=== PATIENT | male | born 1945 | race Caucasian/White ===

== ENCOUNTER → 2017-12-31 18:12 | Outpatient (REF) | payer MEDICARE, OTHER, SELFPAY | LOC: LAB 18:12 | PROVIDERS: Family Provider Family Medicine; PCP Family Medicine; Visit Provider Physician Assistant | DX: L98.8 Other specified disorders of the skin and subcutaneous tissue (principal); L53.8 Other specified erythematous conditions; S51.802A Unspecified open wound of left forearm, initial encounter | CPT/HCPCS: 87070; 87075; 87077; 87147; 87186; 87205 ==

== ENCOUNTER → 2018-01-11 14:19 | Outpatient (CLI) | payer MEDICARE, OTHER, SELFPAY ==
[2018-01-11 15:54] LABS: Hematocrit 39.6 % (41-53); Hemoglobin 13.9 g/dL (13.5-17.5); Mean Corpuscular HGB Conc 35.2 % (30-36); Mean Corpuscular Hemoglobin 31.8 PG (26-34); Mean Corpuscular Volume 90.5 fL (80-100); Red Blood Cell Count 4.37 X10^6/uL (4.5-5.9); White Blood Cell Count 6.1 X10^3/uL (4.5-11.0)
[2018-01-11 15:55] LABS: Platelet Count 37 X10^3/uL (150-400); Red Cell Distribution Width 13.7 % (11.6-14.8)
[2018-01-11 16:24] LABS: Neutrophils Absolute Manual 671 /uL (3000-5900); Total Cells Counted 100
[2018-01-11 16:27] LABS: Platelet Estimate Decreased on smear
[2018-01-11 16:29] LABS: RBC Morphology Normal Morphology; WBC Morphology Comment NOTE:
[2018-01-11 16:37] LABS: Alanine Aminotransferase 60 IU/L (21-72); Albumin 4.2 g/dL (3.5-5.0); Albumin Globulin Ratio 1.6 (1.0-2.8); Alkaline Phosphatase 65 U/L (38-126); Aspartate Aminotransferase 36 IU/L (17-59); Bilirubin Total 0.6 mg/dL (0.2-1.3); Blood Urea Nitrogen 16 mg/dL (9-20); Calcium 8.9 mg/dL (8.4-10.2); Carbon Dioxide 30 mmol/L (22-32); Chloride 100 mmol/L (98-107); Estimated Glomerular Filt Rate > 60.0 mL/min (>60); Globulin 2.6 g/dL (1.7-4.1); Glucose 106 mg/dL (80-110); HEMOLYSIS < 15 (0-50); Potassium 3.8 mmol/L (3.4-5.1); Sodium 142 mmol/L (137-145); Total Protein 6.8 g/dL (6.3-8.2)
[2018-01-11 16:58] LABS: Thyroid Stimulating Hormone 1.97 uIU/mL (0.47-4.68)
== END ==
PROVIDERS: Visit Provider Internal Medicine
DX: R53.83 Other fatigue (principal); D69.6 Thrombocytopenia, unspecified
CPT/HCPCS: 36415; 80053; 84443; 85025

== ENCOUNTER → 2018-01-24 08:58 | Outpatient (CLI) | payer MEDICARE, OTHER, SELFPAY ==
[2018-01-24 09:29] LABS: Hematocrit 40.8 % (41-53); Hemoglobin 14.2 g/dL (13.5-17.5); Mean Corpuscular HGB Conc 34.8 % (30-36); Mean Corpuscular Hemoglobin 31.8 PG (26-34); Mean Corpuscular Volume 91.3 fL (80-100); Red Blood Cell Count 4.47 X10^6/uL (4.5-5.9); Red Cell Distribution Width 14.2 % (11.6-14.8); White Blood Cell Count 8.9 X10^3/uL (4.5-11.0)
[2018-01-24 11:00] LABS: Neutrophils Absolute Manual 2937 /uL (3000-5900); Total Cells Counted 100
[2018-01-24 11:03] LABS: Platelet Count 106 X10^3/uL (150-400)
== END ==
PROVIDERS: Family Provider Family Medicine; PCP Family Medicine; Visit Provider Internal Medicine Hematology & Oncology
DX: D69.6 Thrombocytopenia, unspecified (principal)
CPT/HCPCS: 36415; 82784; 85025

== ENCOUNTER → 2018-02-15 07:41 | Outpatient (CLI) | payer MEDICARE, OTHER, SELFPAY ==
[2018-02-15 08:38] LABS: Cholesterol 159 mg/dL (140-199); HDL Cholesterol 22 mg/dL (40-60); LDL Cholesterol Calculated 73 mg/dL (<100); Triglycerides 320 mg/dL (35-150)
[2018-02-15 08:47] LABS: Hematocrit 43.2 % (41-53); Hemoglobin 14.8 g/dL (13.5-17.5); Mean Corpuscular HGB Conc 34.3 % (30-36); Mean Corpuscular Hemoglobin 31.7 PG (26-34); Mean Corpuscular Volume 92.4 fL (80-100); Red Blood Cell Count 4.68 X10^6/uL (4.5-5.9); Red Cell Distribution Width 13.8 % (11.6-14.8); White Blood Cell Count 10.1 X10^3/uL (4.5-11.0)
[2018-02-15 08:58] LABS: Add Manual Diff / Slide Review NO; Basophils Percent Auto 0.5 % (0-2); Eosinophils Percent Auto 0.5 % (2-4); Lymphocytes Percent Auto 61.5 % (25-40); Monocytes Percent Auto 13.6 % (3-14); Neutrophils Absolute Auto 2414 /uL (3000-5900); Neutrophils Percent Auto 23.9 % (50-75); Platelet Count 84 X10^3/uL (150-400)
[2018-02-15 09:03] LABS: Alanine Aminotransferase 50 IU/L (21-72); Albumin 4.4 g/dL (3.5-5.0); Albumin Globulin Ratio 1.6 (1.0-2.8); Alkaline Phosphatase 58 U/L (38-126); Aspartate Aminotransferase 33 IU/L (17-59); Bilirubin Total 0.6 mg/dL (0.2-1.3); Blood Urea Nitrogen 15 mg/dL (9-20); Calcium 9.5 mg/dL (8.4-10.2); Carbon Dioxide 31 mmol/L (22-32); Chloride 102 mmol/L (98-107); Estimated Glomerular Filt Rate > 60.0 mL/min (>60); Globulin 2.8 g/dL (1.7-4.1); Glucose 103 mg/dL (80-110); HEMOLYSIS < 15 (0-50); Lactate Dehydrogenase 405 U/L (313-618); Potassium 4.1 mmol/L (3.4-5.1); Sodium 142 mmol/L (137-145); Total Protein 7.2 g/dL (6.3-8.2)
== END ==
PROVIDERS: Internal Medicine Hematology & Oncology; PCP Internal Medicine; Visit Provider Internal Medicine
DX: E78.1 Pure hyperglyceridemia (principal); R74.8 Abnormal levels of other serum enzymes; D69.3 Immune thrombocytopenic purpura
CPT/HCPCS: 36415; 80053; 80061; 83615; 85025

== ENCOUNTER → 2018-07-28 12:49 | Outpatient (CLI) | payer MEDICARE, OTHER, SELFPAY ==
[2018-07-28 13:06] LABS: Add Manual Diff / Slide Review NO; Basophils Absolute Auto 100 /uL (0-100); Basophils Percent Auto 0.6 % (0-2); Eosinophils Absolute Auto 100 /uL (0-450); Eosinophils Percent Auto 0.8 % (2-4); Hematocrit 41.9 % (41-53); Hemoglobin 14.3 g/dL (13.5-17.5); Lymphocytes Absolute Auto 5100 /uL (1100-4500); Lymphocytes Percent Auto 49.1 % (25-40); Mean Corpuscular Volume 91.1 fL (80-100); Monocytes Absolute Auto 1700 /uL (0-900); Monocytes Percent Auto 16.9 % (3-14); Neutrophils Absolute Auto 3400 /uL (1500-7000); Neutrophils Percent Auto 32.6 % (50-75); Platelet Count 106 X10^3/uL (150-400); Red Cell Distribution Width 13.9 % (11.6-14.8); White Blood Cell Count 10.3 X10^3/uL (4.5-11.0)
--- NOTE | 2018-07-28 16:01 | PC.NURSE ---
chronic ITP, pt here for 6 month labs which appear to be stable compared to prior visits. Provider vist on
[2018-07-28 17:27] LABS: Alanine Aminotransferase 53 IU/L (21-72); Albumin 4.5 g/dL (3.5-5.0); Albumin Globulin Ratio 1.5 (1.0-2.8); Alkaline Phosphatase 64 U/L (38-126); Aspartate Aminotransferase 32 IU/L (17-59); Bilirubin Total 0.6 mg/dL (0.2-1.3); Blood Urea Nitrogen 17 mg/dL (9-20); Carbon Dioxide 28 mmol/L (22-32); Chloride 101 mmol/L (98-107); Estimated Glomerular Filt Rate > 60.0 mL/min (>60); Globulin 3.1 g/dL (1.7-4.1); Glucose 93 mg/dL (80-110); HEMOLYSIS < 15 (0-50); Lactate Dehydrogenase 406 U/L (313-618); Potassium 4.1 mmol/L (3.4-5.1); Sodium 139 mmol/L (137-145); Total Protein 7.6 g/dL (6.3-8.2)
== END ==
PROVIDERS: Family Provider Family Medicine; PCP Family Medicine; Visit Provider Nurse Practitioner Gerontology
DX: D69.3 Immune thrombocytopenic purpura (principal); D72.820 Lymphocytosis (symptomatic); I10 Essential (primary) hypertension
CPT/HCPCS: 36415; 80053; 83615; 85025

== ENCOUNTER → 2019-04-11 08:06 | Outpatient (CLI) | payer MEDICARE, OTHER, SELFPAY ==
[2019-04-11 08:46] LABS: Hematocrit 40.9 % (41-53); Hemoglobin 14.1 g/dL (13.5-17.5); Mean Corpuscular HGB Conc 34.4 % (30-36); Mean Corpuscular Hemoglobin 31.2 PG (26-34); Mean Corpuscular Volume 90.7 fL (80-100); Platelet Count 64 X10^3/uL (150-400); Red Blood Cell Count 4.51 X10^6/uL (4.5-5.9); Red Cell Distribution Width 14.6 % (11.6-14.8); White Blood Cell Count 8.5 X10^3/uL (4.5-11.0)
[2019-04-11 08:48] LABS: Add Manual Diff / Slide Review YES
[2019-04-11 08:51] LABS: Hemoglobin A1C% w Est Avg Glu 5.8 % (4.0-6.0)
[2019-04-11 09:07] LABS: Alanine Aminotransferase 48 IU/L (21-72); Albumin 4.5 g/dL (3.5-5.0); Albumin Globulin Ratio 1.7 (1.0-2.8); Alkaline Phosphatase 63 U/L (38-126); Aspartate Aminotransferase 33 IU/L (17-59); Bilirubin Total 0.7 mg/dL (0.2-1.3); Blood Urea Nitrogen 14 mg/dL (9-20); Calcium 9.4 mg/dL (8.4-10.2); Carbon Dioxide 27 mmol/L (22-32); Chloride 104 mmol/L (98-107); Cholesterol 168 mg/dL (140-199); Estimated Glomerular Filt Rate > 60.0 mL/min (>60); Globulin 2.6 g/dL (1.7-4.1); Glucose 98 mg/dL (80-110); HDL Cholesterol 22 mg/dL (40-60); HEMOLYSIS < 15 (0-50); LDL Cholesterol Calculated 99 mg/dL (<100); Potassium 4.3 mmol/L (3.4-5.1); Sodium 141 mmol/L (137-145); Total Protein 7.1 g/dL (6.3-8.2); Triglycerides 236 mg/dL (35-150)
[2019-04-11 09:37] LABS: Thyroid Stimulating Hormone 3.01 uIU/mL (0.47-4.68)
[2019-04-11 09:38] LABS: Prostate Specific Antigen Scrn 2.02 ng/mL (0.1-4.0)
[2019-04-11 09:48] LABS: Neutrophils Absolute Manual 2465 /uL (3000-5900); RBC Morphology Normal Morphology; Total Cells Counted 100
[2019-04-11 13:41] LABS: Creatinine Urine Random 118.3 mg/dL
[2019-04-11 13:47] LABS: Microalbumi Creatinin Ratio Ur 5.9 ug/mg CR (<30); Microalbumin Urine Random 0.7 mg/dL (0-1.6)
[2019-04-13 16:26] LABS: Fecal Immunochemical Test NOT DETECTED (NOT DETECTED)
== END ==
PROVIDERS: PCP Family Medicine; Visit Provider Family Medicine
DX: E78.1 Pure hyperglyceridemia (principal); I10 Essential (primary) hypertension; N28.9 Disorder of kidney and ureter, unspecified; R73.09 Other abnormal glucose; R74.8 Abnormal levels of other serum enzymes; Z12.5 Encounter for screening for malignant neoplasm of prostate; Z13.29 Encounter for screening for other suspected endocrine disorder; Z12.11 Encounter for screening for malignant neoplasm of colon
CPT/HCPCS: 36415; 80053; 80061; 82043; 82274; 82570; 83036; 84443; 85025; G0103

== ENCOUNTER → 2019-10-05 11:10 | Outpatient (CLI) | payer MEDICARE, OTHER, SELFPAY ==
[2019-10-07 15:39] LABS: ANA Screen, IFA Negative (.)
== END ==
PROVIDERS: PCP Family Medicine; Referring Provider Physician Assistant; Visit Provider Physician Assistant
DX: L71.8 Other rosacea (principal); L57.0 Actinic keratosis; X32.XXXA Exposure to sunlight, initial encounter
CPT/HCPCS: 36415; 86038

== ENCOUNTER → 2020-07-26 10:40 | Outpatient (CLI) | payer MEDICARE, OTHER, SELFPAY ==
[2020-07-26] MEDS: COVID-19 VACC #1, MRNA(MOD) 100 MCG/0.5 ML VIAL IM (10:46)
== END ==
PROVIDERS: PCP Family Medicine; Visit Provider Internal Medicine
DX: Z23 Encounter for immunization (principal)
CPT/HCPCS: 0011A; 91301

== ENCOUNTER → 2020-08-23 11:04 | Outpatient (CLI) | payer MEDICARE, OTHER, SELFPAY ==
[2020-08-23] MEDS: COVID-19 VACC #2, MRNA(MOD) 100 MCG/0.5 ML VIAL IM (11:15)
== END ==
PROVIDERS: PCP Family Medicine; Visit Provider Internal Medicine
DX: Z23 Encounter for immunization (principal)
CPT/HCPCS: 0012A; 91301

== ENCOUNTER → 2021-05-15 08:01 | Outpatient (CLI) | payer MEDICARE, OTHER, SELFPAY ==
[2021-05-15 08:51] LABS: Cholesterol 156 mg/dL (140-199); HDL Cholesterol 21 mg/dL (40-60); LDL Cholesterol Calculated 104 mg/dL (<100); Triglycerides 156 mg/dL (35-150)
[2021-05-15 10:26] LABS: Microalbumi Creatinin Ratio Ur 7.6 ug/mg CR (<30); Microalbumin Urine Random 0.7 mg/dL (0-1.6)
== END ==
PROVIDERS: PCP Family Medicine; Referring Provider Family Medicine; Visit Provider Family Medicine
DX: I10 Essential (primary) hypertension (principal); E78.1 Pure hyperglyceridemia; R74.8 Abnormal levels of other serum enzymes
CPT/HCPCS: 36415; 80061; 82043; 82570

== ENCOUNTER → 2022-05-12 09:02 | Outpatient (CLI) | payer MEDICARE, OTHER, SELFPAY ==
[2022-05-12 10:46] LABS: Hemoglobin A1C% w Est Avg Glu 6.1 % (4.0-6.0)
[2022-05-12 10:55] LABS: Cholesterol 161 mg/dL (140-199); HDL Cholesterol 21 mg/dL (40-60); LDL Cholesterol Calculated 114 mg/dL (<100); Triglycerides 130 mg/dL (35-150)
== END ==
PROVIDERS: PCP Family Medicine; Referring Provider Family Medicine; Visit Provider Family Medicine
DX: Z13.1 Encounter for screening for diabetes mellitus (principal); E78.1 Pure hyperglyceridemia
CPT/HCPCS: 36415; 80061; 83036

== ENCOUNTER → 2022-07-01 15:05 | Outpatient (CLI) | payer MEDICARE, OTHER, SELFPAY ==
[2022-07-02 14:04] LABS: Fecal Immunochemical Test Negative (Negative)
== END ==
PROVIDERS: PCP Family Medicine; Referring Provider Family Medicine; Visit Provider Family Medicine
DX: Z12.11 Encounter for screening for malignant neoplasm of colon (principal)
CPT/HCPCS: 82274

== ENCOUNTER → 2023-03-17 07:35 | Outpatient (CLI) | payer MEDICARE, OTHER, SELFPAY ==
[2023-03-17 09:35] LABS: Free T4, Direct Thyroxine 1.01 ng/dL (0.78-2.19)
[2023-03-17 09:49] LABS: Thyroid Stimulating Hormone 2.58 uIU/mL (0.47-4.68)
[2023-03-17 09:56] LABS: Vitamin D 25 Hydroxy (D3) 45.6 ng/mL (30.0-100.0)
[2023-03-17 10:24] LABS: Folate 16.5 ng/mL (2.76-20.0); Vitamin B12 934 pg/mL (239-931)
== END ==
PROVIDERS: PCP Family Medicine; Referring Provider Psychiatry & Neurology Neurology; Visit Provider Psychiatry & Neurology Neurology
DX: R53.83 Other fatigue (principal); E55.9 Vitamin D deficiency, unspecified
CPT/HCPCS: 36415; 82306; 82607; 82746; 84439; 84443

== ENCOUNTER → 2023-05-17 08:13 | Outpatient (CLI) | payer MEDICARE, OTHER, SELFPAY ==
[2023-05-17 09:40] LABS: Add Manual Diff / Slide Review YES; Hematocrit 38.9 % (41-53); Hemoglobin 13.4 g/dL (13.5-17.5); Mean Corpuscular HGB Conc 34.4 % (30-36); Mean Corpuscular Hemoglobin 30.9 PG (26-34); Mean Corpuscular Volume 89.8 fL (80-100); Platelet Count 74 X10^3/uL (150-400); Red Blood Cell Count 4.33 X10^6/uL (4.5-5.9); Red Cell Distribution Width 14.5 % (11.6-14.8); White Blood Cell Count 10.5 X10^3/uL (4.5-11.0)
[2023-05-17 09:51] LABS: Alanine Aminotransferase 39 IU/L (<50); Albumin 4.3 g/dL (3.5-5.0); Albumin Globulin Ratio 1.5 (1.0-2.8); Alkaline Phosphatase 76 U/L (38-126); Aspartate Aminotransferase 33 IU/L (17-59); BUN Creatinine Ratio 18.9 (6-22); Blood Urea Nitrogen 18 mg/dL (9-20); Calcium 9.7 mg/dL (8.4-10.2); Carbon Dioxide 31 mmol/L (22-32); Chloride 101 mmol/L (98-107); Cholesterol 151 mg/dL (140-199); Estimated Glomerular Filt Rate > 60 mL/min (>60); Globulin 2.8 g/dL (1.7-4.1); Glucose 93 mg/dL (80-110); HDL Cholesterol 22 mg/dL (40-60); HEMOLYSIS < 15 (0-50); LDL Cholesterol Calculated 102 mg/dL (<100); Potassium 4.1 mmol/L (3.4-5.1); Sodium 139 mmol/L (137-145); Total Protein 7.1 g/dL (6.3-8.2); Triglycerides 134 mg/dL (35-150)
[2023-05-17 10:23] LABS: Neutrophils Absolute Manual 3150 /uL (3000-5900); RBC Morphology Normal Morphology; Total Cells Counted 100
[2023-05-17 10:24] LABS: Reactive Lymphocytes 1+
== END ==
PROVIDERS: PCP Family Medicine; Referring Provider Family Medicine; Visit Provider Family Medicine
DX: I10 Essential (primary) hypertension (principal); R73.9 Hyperglycemia, unspecified; E78.1 Pure hyperglyceridemia; R74.8 Abnormal levels of other serum enzymes; D72.829 Elevated white blood cell count, unspecified; D69.6 Thrombocytopenia, unspecified; D69.3 Immune thrombocytopenic purpura
CPT/HCPCS: 36415; 80053; 80061; 83036; 85007; 85025

== ENCOUNTER 2023-07-20 14:57 | Emergency (ER) | payer MEDICARE, OTHER, SELFPAY ==
[2023-07-20 15:03] VITALS: BP 148/67; PULSE 86; RESP 18; TEMP 36.8; O2SAT 98; BMI 25.0
--- NOTE | 2023-07-20 15:34 | DI.US.S_ITS ---
PROCEDURE: US PERIPH VENOUS LOW EXTREM RT INDICATIONS: SWELLING X 7 DAYS TECHNIQUE: Real-time imaging, as well as color and pulse Doppler interrogation, were performed of the lower extremity deep veins from the inguinal ligament to the popliteal fossa, with documentation of the visualized calf veins. COMPARISON: None. FINDINGS: The common femoral, femoral, popliteal, and the visualized calf veins are normally compressible, and free of intraluminal thrombus. Color and pulse Doppler demonstrate normal phasic intraluminal flow. There is normal augmentation response to distal compression maneuver. Multiple prominent right inguinal nodes are seen measures up to 1 cm in size. Moderate soft tissue edema throughout right thigh down to ankle level is noted. IMPRESSION: 1. No evidence of DVT in visualized right lower extremity veins. 2. Mildly enlarged right inguinal lymph nodes as above may be reactive. Soft tissue edema throughout right lower extremity. Dictated by: Yoav Vinson M.D. on 07/20/2023 at 16:33 Approved by: Yoav Vinson M.D. on 07/20/2023 at 16:34
[2023-07-20 15:42] VITALS: PULSE 76
--- NOTE | 2023-07-20 15:50 | ED.EXTPRO ---
HPI - Extremity Problem <Carolin Castaneda PA-C - Last Filed: 07/20/23 18:58> General Chief complaint: Extremity Problem,Nontraumatic Stated complaint: rt leg and foot swelling, sent by PCP Time Seen by Provider: 07/20/23 15:21 Source: patient Mode of arrival: Ambulatory History of Present Illness HPI Narrative: Patient is a 78-year-old male who presents with right lower extremity swelling. He reports the swelling has been present for about 1 week. He also notes that both of his feet have felt cold and numb for several months. He discussed this with Dr. Mei at his checkup in the fall and she recommended to start on gabapentin. He prefers not to take pills so he did not start taking this. He also had АННА done which was 1.04. He denies fever or chills, weakness, pain over the past week. He has no history of blood clots. He describes himself as very active. He has had no recent travel or immobilization. Related Data Home Medications Medication Instructions Recorded Confirmed multivitamin 1 cap DAILY 12/04/20 05/25/23 cholecalciferol (vitamin D3) 25 25 mcg PO DAILY 11/24/22 05/25/23 mcg (1,000 unit) capsule (Vitamin D3) omega-3 fatty acids-vitamin E 1 cap DAILY 11/24/22 05/25/23 1,000 mg capsule red yeast rice 600 mg capsule 1,200 mg PO DAILY 11/24/22 05/25/23 Previous Rx's Medication Instructions Recorded gabapentin 100 mg capsule 100 mg PO DAILY #60 caps 06/17/23 losartan 25 mg tablet 25 mg PO DAILY #90 tabs 06/23/23 tamsulosin 0.4 mg capsule 0.4 mg PO DAILY #30 caps 07/20/23 Allergies Allergy/AdvReac Type Severity Reaction Status Date / Time aspirin [ASPIRIN] Allergy Severe Childhood, Verified 05/25/23 09:29 facial swelling Review of Systems <Carolin Castaneda PA-C - Last Filed: 07/20/23 18:58> Review of Systems ROS Unobtainable: All systems reviewed & are unremarkable except as noted in HPI and below Patient History <Carolin Castaneda PA-C - Last Filed: 07/20/23 18:58> Medical History Measles Prostatitis (2010) Chicken pox Hyperlipidemia Hypertension (2001) UTI (urinary tract infection) (2010) Skin cancer (2009) Thrombocytopenia (2006) Surgical History Anesthesia Status post colonoscopy (08/20/06) Family History Father Parkinson's disease Mother Parkinson's disease Social History marital status: number of children: 2 household members: spouse lives independently: Yes caregiver/support person: No housing: house Smoking Status: Never smoker second hand exposure: No alcohol intake: current substance use type: does not use Smoking Status: Never smoker Substance Use Type: does not use Exam <Carolin Castaneda PA-C - Last Filed: 07/20/23 18:58> Narrative Exam Narrative: GENERAL: 78 year old patient appears stated age. Well-developed patient, in no acute distress. NEURO: AOx3. HEAD: Atraumatic. Normocephalic. EYES: Pupils equal round and reactive. Extraocular motions intact. No scleral icterus. No injection or drainage. ENT: Nose without bleeding or purulent drainage. Airway patent. NECK: Trachea midline. Non tender RESPIRATORY: No distress or increased work of breathing GROIN: Non-tender lymphadenopathy in right groin. EXTREMITIES: Diffuse edema of the right lower extremity from the groin down through the foot. The calf is rather tense, nontender, non erythematous, not warm. Left calf is supple, no edema noted. DP pulse 2+, PT pulse 1+, difficult to locate. SKIN: No rash or erythema of visible areas Initial Vital Signs Initial Vital Signs: Vital Signs Temperature 98.3 F 07/20/23 15:03 Pulse Rate 86 07/20/23 15:03 Respiratory Rate 18 07/20/23 15:03 Blood Pressure 148/67 H 07/20/23 15:03 Pulse Oximetry 98 07/20/23 15:03 Oxygen Delivery Method Room Air 07/20/23 15:03 <Ina De La Rosa DO - Last Filed: 07/22/23 06:53> Initial Vital Signs Initial Vital Signs: Vital Signs Temperature 98.3 F 07/20/23 15:03 Pulse Rate 86 07/20/23 15:03 Respiratory Rate 18 07/20/23 15:03 Blood Pressure 148/67 H 07/20/23 15:03 Pulse Oximetry 98 07/20/23 15:03 Oxygen Delivery Method Room Air 07/20/23 15:03 Course <Carolin Castaneda PA-C - Last Filed: 07/20/23 18:58> Orders Ordered: ED Orders 07/20/23 15:34 US periph venous low extrem rt Stat 07/20/23 16:58 CT abdomen pelvis w con Stat CBC Auto Diff [Complete Blood Count AUTO DIFF] Stat CMP [Comprehensive Metabolic Panel] Stat 07/20/23 17:38 Urinalysis and Microscopic Stat Vital Signs Vital signs: Vital Signs - 8 hr 07/20/23 15:03 07/20/23 15:42 07/20/23 18:40 Temperature 98.3 F Pulse Rate 86 74 Pulse Rate [Posterior Tibial] 76 Respiratory Rate 18 18 Blood Pressure 148/67 H Pulse Oximetry 98 98 Oxygen Delivery Method Room Air Room Air <Ina De La Rosa DO - Last Filed: 07/22/23 06:53> Orders Ordered: ED Orders 07/20/23 15:34 US periph venous low extrem rt Stat 07/20/23 16:58 CT abdomen pelvis w con Stat CBC Auto Diff [Complete Blood Count AUTO DIFF] Stat CMP [Comprehensive Metabolic Panel] Stat 07/20/23 17:38 Urinalysis and Microscopic Stat Vital Signs Vital signs: Vital Signs - 8 hr 07/20/23 15:03 07/20/23 15:42 07/20/23 18:40 Temperature 98.3 F Pulse Rate 86 74 Pulse Rate [Posterior Tibial] 76 Respiratory Rate 18 18 Blood Pressure 148/67 H Pulse Oximetry 98 98 Oxygen Delivery Method Room Air Room Air MDM - Extremity (Nontraumatic) <Carolin Castaneda PA-C - Last Filed: 07/20/23 18:58> Lab Data 07/20/23 16:58 07/20/23 16:58 Labs: Lab Results 07/20/23 07/20/23 Range/Units 16:58 17:38 WBC 11.4 H (4.5-11.0) X10^3/uL RBC 4.15 L (4.5-5.9) X10^6/uL Hgb 12.6 L (13.5-17.5) g/dL Hct 37.5 L (41-53) % MCV 90.2 (80-100) fL MCH 30.4 (26-34) PG MCHC 33.7 (30-36) % RDW 14.6 (11.6-14.8) % Plt Count 72 L (150-400) X10^3/uL Neut % (Auto) Not Reportable Lymph % (Auto) Not Reportable [place] % (Auto) Not Reportable Eos % (Auto) Not Reportable Baso % (Auto) Not Reportable Lymph # (Auto) Not Reportable [place] # (Auto) Not Reportable Baso # (Auto) Not Reportable Total Counted 100 Seg Neutrophils % 36.0 L (38-70) % Lymphocytes % (Manual) 50.0 H (25-45) % Monocytes % (Manual) 13.0 H (2-11) % Basophils % (Manual) 1.0 (0-1) % Neutrophils # (Manual) 4104 (7030-5098) /uL Plt Morphology Comment Sb RBC Morphology Normal morphology Sodium 137 (137-145) mmol/L Potassium 3.7 (3.4-5.1) mmol/L Chloride 102 (98-107) mmol/L Carbon Dioxide 28 (22-32) mmol/L BUN 21 H (9-20) mg/dL Creatinine 0.94 (0.66-1.25) mg/dL Estimated GFR > 60 (>60) mL/min BUN/Creatinine Ratio 22.3 H (6-22) Glucose 105 (80-110) mg/dL Calcium 9.5 (8.4-10.2) mg/dL Total Bilirubin 0.9 (0.2-1.3) mg/dL AST 35 (17-59) IU/L ALT 32 (<50) IU/L Alkaline Phosphatase 78 (38-126) U/L Total Protein 7.4 (6.3-8.2) g/dL Albumin 4.2 (3.5-5.0) g/dL Globulin 3.2 (1.7-4.1) g/dL Albumin/Globulin Ratio 1.3 (1.0-2.8) Urine Color Yellow Urine Appearance Clear Urine pH 7.5 (4.5-8.0) Ur Specific Mor[place] 1.010 (1.000-1.035) Urine Protein Negative (Negative) Urine Glucose (UA) Negative (Negative) g/dL Urine Ketones Negative (NEGATIVE) Urine Occult Blood Negative (Negative) Urine Nitrate Negative (Negative) Urine Bilirubin Negative (NEGATIVE) Urine Urobilinogen 1.0 (0.2) E.U./dL Ur Leukocyte Esterase Negative (NEGATIVE) Urine RBC None seen (0-5/HPF) Urine WBC None seen (0-5/HPF) Ur Squamous Epith Cells 0-1 /hpf (0-5/HPF) Urine Bacteria None seen (None) Ur Culture Indicated? Cult not indicated Vol Urine Centrifuged 10ml (spun) Imaging Data CT scan - abdomen/pelvis: Radiologist's Impression: PROCEDURE: CT ABDOMEN PELVIS W CON INDICATIONS: RLE edema, large R inguinal nodes, r/o obstruction/malignanc TECHNIQUE: After the administration of intravenous contrast, axial sections acquired from the lung bases to the pubic symphysis. Coronal and sagittal reformats were performed. For radiation dose reduction, the following was used: automated exposure control, adjustment of mA and/or kV according to patient size. COMPARISON: [facility], CT, ABDOMEN/PELVIS WITH CONTRAST, 09/06/2006, 7:23. FINDINGS: Image quality: Diagnostic. Lower Chest: Mild bibasilar scattered atelectasis is seen. Heart size is normal, no pericardial effusion. ABDOMEN: Liver: No solid mass. Mild hepatic steatosis is seen. Gallbladder: A calcified stone is seen in a partially distended gallbladder lumen. No gallbladder wall thickening or pericholecystic fluid is seen. Biliary ducts: No biliary dilation. Pancreas: No ductal dilation. Spleen: Size is within normal limits. Adrenal Glands: No adrenal nodules. Kidneys and Ureters: No hydronephrosis. No solid mass. Small left renal cortical cysts are seen. No complex renal cystic lesion which requires follow up. Stomach and Bowel: There is fecal stasis throughout the colon. No abnormal bowel wall thickening. No bowel obstruction. Appendix is visualized in right lower quadrant abdomen and is within normal limits. No abscess collection. Peritoneum: No abnormal intraperitoneal fluid. No free air. Ventral Wall: No hernia. Abdominal Nodes: Prominent retroperitoneal lymph nodes are seen measures up to 1.8 cm in short axis diameter in left periaortic space series 2, image 50. Small mesenteric lymph nodes are noted in mid to lower abdomen measures up to 7 mm in size in left lower quadrant series 2, image 33. Vessels: Aorta and inferior vena cava are normal in size. PELVIS: Pelvic Organs: Enlarged prostate gland with mass effect on floor of urinary bladder is seen.. Bladder: No gross bladder wall abnormality. Possible calcified stone is seen in right dependent portion of bladder lumen. Pelvic Nodes: Markedly enlarged lymph nodes along right iliac chain are seen measures up to 2.8 x 3.6 cm in size series 2, image 75. Additional prominent right inguinal lymph nodes are also seen measures up to 1.6 cm in short axis diameter series 2, image 83. Smaller lymph nodes are seen in left inguinal region and along left iliac chain. Miscellaneous: No inguinal hernias are seen. Bones: No aggressive osseous abnormality. No acute vertebral body compression fracture. Degenerative disc disease throughout lumbar spine is seen. IMPRESSION: 1. Extensive retroperitoneal lymphadenopathy , prominent bilateral iliac lymph nodes extending to bilateral inguinal region concerning for systemic process such as lymphoma suggest clinical correlation. 2. No bowel obstruction or abnormal bowel wall thickening. Moderate constipation. Normal appendix. No free fluid or free air. 3. Cholelithiasis without CT evidence of acute cholecystitis. Dictated by: Yoav Vinson M.D. on 07/20/2023 at 17:22 Approved by: Yoav Vinson M.D. on 07/20/2023 at 17:30 US - DVT: Radiologist's Impression: PROCEDURE: US PERIPH VENOUS LOW EXTREM RT INDICATIONS: SWELLING X 7 DAYS TECHNIQUE: Real-time imaging, as well as color and pulse Doppler interrogation, were performed of the lower extremity deep veins from the inguinal ligament to the popliteal fossa, with documentation of the visualized calf veins. COMPARISON: None. FINDINGS: The common femoral, femoral, popliteal, and the visualized calf veins are normally compressible, and free of intraluminal thrombus. Color and pulse Doppler demonstrate normal phasic intraluminal flow. There is normal augmentation response to distal compression maneuver. Multiple prominent right inguinal nodes are seen measures up to 1 cm in size. Moderate soft tissue edema throughout right thigh down to ankle level is noted. IMPRESSION: 1. No evidence of DVT in visualized right lower extremity veins. 2. Mildly enlarged right inguinal lymph nodes as above may be reactive. Soft tissue edema throughout right lower extremity. Dictated by: Yoav Vinson M.D. on 07/20/2023 at 16:33 Approved by: Yoav Vinson M.D. on 07/20/2023 at 16:34 [facility] Narrative Medical decision making narrative: Multiple etiologies for patient's symptoms considered including, but not limited to: DVT, cellulitis, compartment syndrome Lower extremity without warmth, erythema or tenderness, low suspicion for infection. No recent fracture or crush injury to suggest compartment syndrome. Venous ultrasound negative for DVT but does note enlarged inguinal lymph nodes. Case discussed with Dr. De La Rosa who agrees that further imaging is indicated to rule out intra-abdominal pathology and investigate cause of the swelling. Labs generally [place] [address], which is stable from past. Urine is clear of signs of infection. CT scan is notable for significant enlarged lymph nodes in the retroperitoneal space and throughout the abdominal cavity. The bladder is very distended as is the prostate. Postvoid residual bladder scan shows a retained volume of approximately 450 mL and the patient does not feel this. Discussed benefit versus risk of straight catheterizing patient. Patient currently has no discomfort, no signs of infection, no hydronephrosis on CT, so decided to leave this for the time being so as not to introduce infection. We will start patient on Flomax to improve voiding. Detailed note sent to Dr. Mei's team regarding findings today and urgent need for referral for further investigation of lymphadenopathy and prostate enlargement. Patient encouraged to purchase compression stocking to support the venous return in the right leg. Strict return precautions advised. Patient and his state understanding. Patient's symptoms improved over duration of stay with above-stated therapies. Findings and discharge diagnosis discussed with patient/family followed by verbalization of understanding Return precautions discussed with patient/family whom verbalize understanding of diagnosis and plan <Ina De La Rosa, DO - Last Filed: 07/22/23 06:53> Lab Data Labs: Lab Results 07/20/23 07/20/23 Range/Units 16:58 17:38 WBC 11.4 H (4.5-11.0) X10^3/uL RBC 4.15 L (4.5-5.9) X10^6/uL Hgb 12.6 L (13.5-17.5) g/dL Hct 37.5 L (41-53) % MCV 90.2 (80-100) fL MCH 30.4 (26-34) PG MCHC 33.7 (30-36) % RDW 14.6 (11.6-14.8) % Plt Count 72 L (150-400) X10^3/uL Neut % (Auto) Not Reportable Lymph % (Auto) Not Reportable [place]ette % (Auto) Not Reportable Eos % (Auto) Not Reportable Baso % (Auto) Not Reportable Lymph # (Auto) Not Reportable [place] # (Auto) Not Reportable Baso # (Auto) Not Reportable Total Counted 100 Seg Neutrophils % 36.0 L (38-70) % Lymphocytes % (Manual) 50.0 H (25-45) % Monocytes % (Manual) 13.0 H (2-11) % Basophils % (Manual) 1.0 (0-1) % Neutrophils # (Manual) 4104 (2634-1332) /uL Plt Morphology Comment Sb RBC Morphology Normal morphology Sodium 137 (137-145) mmol/L Potassium 3.7 (3.4-5.1) mmol/L Chloride 102 (98-107) mmol/L Carbon Dioxide 28 (22-32) mmol/L BUN 21 H (9-20) mg/dL Creatinine 0.94 (0.66-1.25) mg/dL Estimated GFR > 60 (>60) mL/min BUN/Creatinine Ratio 22.3 H (6-22) Glucose 105 (80-110) mg/dL Calcium 9.5 (8.4-10.2) mg/dL Total Bilirubin 0.9 (0.2-1.3) mg/dL AST 35 (17-59) IU/L ALT 32 (<50) IU/L Alkaline Phosphatase 78 (38-126) U/L Total Protein 7.4 (6.3-8.2) g/dL Albumin 4.2 (3.5-5.0) g/dL Globulin 3.2 (1.7-4.1) g/dL Albumin/Globulin Ratio 1.3 (1.0-2.8) Urine Color Yellow Urine Appearance Clear Urine pH 7.5 (4.5-8.0) Ur Specific Mora 1.010 (1.000-1.035) Urine Protein Negative (Negative) Urine Glucose (UA) Negative (Negative) g/dL Urine Ketones Negative (NEGATIVE) Urine Occult Blood Negative (Negative) Urine Nitrate Negative (Negative) Urine Bilirubin Negative (NEGATIVE) Urine Urobilinogen 1.0 (0.2) E.U./dL Ur Leukocyte Esterase Negative (NEGATIVE) Urine RBC None seen (0-5/HPF) Urine WBC None seen (0-5/HPF) Ur Squamous Epith Cells 0-1 /hpf (0-5/HPF) Urine Bacteria None seen (None) Ur Culture Indicated? Cult not indicated Vol Urine Centrifuged 10ml (spun) Discharge Plan Departure Patient Disposition: Home Clinical Impression: Lymph node enlargement, Thrombocytopenia, Hypertrophy of prostate with urinary retention, Edema of right lower extremity Instructions: DI for Urinary Retention in Men, DI for Peripheral Edema-Unilateral Activity Restrictions/Additional Instructions: * it was a pleasure meeting you today, Sadi. As we discussed, I will send a prescription for a medicine called Flomax to your pharmacy. This medicine can make it easier for you to urinate. I have also sent a message to your primary care team to contact you with details regarding a referral to Oncology and any other referrals they deem necessary to follow up on the enlarged lymph nodes in your abdomen that are likely causing swelling in your right lower extremity. I would advise you to by some compressions stockings to help with the edema in your leg. I personally like the brand S[employer]well, but there are many others available online and you might want to find one that goes all the way up your thigh to provide the best support. Continue to drink plenty of water. If you develop the feeling that you have to urinate but are unable to, if you develop a fever along with your leg swelling or if you develop new symptoms, please return to the emergency department for reassessment. If you have not heard from Dr. Mei's team within 48 hours, please go ahead and contact them to inquire about the referral and next steps. *What to do: *Please continue to take your regular medications as directed. [x ] New medication prescriptions sent to your pharmacy: [facility] [ ] New medication written as a paper prescription [ ] No new medications given *Please follow up with your primary care provider in 2-3 days, call for an appointment. Let them know you were seen in the Emergency Department and that we ask that you be seen in follow up. We will electronically transmit a record of today's note if your PCP is in our system *If you do not have a primary care provider please contact the [facility] Resource line at [phone]. They will ask some questions about your medical history and help get you set up with a doctor in the community. *Return to Emergency Department if you should have any new, worsening or concerning symptoms, such as [fever greater than 101 F, shaking chills, worsening pain, persistent vomiting or other concerning symptoms]. Prescriptions: New tamsulosin 0.4 mg capsule 0.4 mg PO DAILY Qty: 30 0RF No Action gabapentin 100 mg capsule 100 mg PO DAILY Qty: 60 1RF losartan 25 mg tablet 25 mg PO DAILY Qty: 90 3RF multivitamin Capsule 1 cap DAILY cholecalciferol (vitamin D3) [Vitamin D3] 25 mcg (1,000 unit) Capsule 25 mcg PO DAILY Fish Oil 1,000 mg Capsule 1 cap DAILY red yeast rice 600 mg Capsule 1,200 mg PO DAILY Rx Instructions: give with meal/snack Referrals: Krystal Mei MD [Primary Care Provider] - Stand Alone Forms: Patient Portal/API ED Sign-out <Ina De La Rosa DO - Last Filed: 07/22/23 06:53> Cosign ED Attending Cosevelynature Attestation: I was available for consultation.
--- NOTE | 2023-07-20 16:58 | DI.CT.S_ITS ---
PROCEDURE: CT ABDOMEN PELVIS W CON INDICATIONS: RLE edema, large R inguinal nodes, r/o obstruction/malignanc TECHNIQUE: After the administration of intravenous contrast, axial sections acquired from the lung bases to the pubic symphysis. Coronal and sagittal reformats were performed. For radiation dose reduction, the following was used: automated exposure control, adjustment of mA and/or kV according to patient size. COMPARISON: [facility], CT, ABDOMEN/PELVIS WITH CONTRAST, 09/06/2006, 7:23. FINDINGS: Image quality: Diagnostic. Lower Chest: Mild bibasilar scattered atelectasis is seen. Heart size is normal, no pericardial effusion. ABDOMEN: Liver: No solid mass. Mild hepatic steatosis is seen. Gallbladder: A calcified stone is seen in a partially distended gallbladder lumen. No gallbladder wall thickening or pericholecystic fluid is seen. Biliary ducts: No biliary dilation. Pancreas: No ductal dilation. Spleen: Size is within normal limits. Adrenal Glands: No adrenal nodules. Kidneys and Ureters: No hydronephrosis. No solid mass. Small left renal cortical cysts are seen. No complex renal cystic lesion which requires follow up. Stomach and Bowel: There is fecal stasis throughout the colon. No abnormal bowel wall thickening. No bowel obstruction. Appendix is visualized in right lower quadrant abdomen and is within normal limits. No abscess collection. Peritoneum: No abnormal intraperitoneal fluid. No free air. Ventral Wall: No hernia. Abdominal Nodes: Prominent retroperitoneal lymph nodes are seen measures up to 1.8 cm in short axis diameter in left periaortic space series 2, image 50. Small mesenteric lymph nodes are noted in mid to lower abdomen measures up to 7 mm in size in left lower quadrant series 2, image 33. Vessels: Aorta and inferior vena cava are normal in size. PELVIS: Pelvic Organs: Enlarged prostate gland with mass effect on floor of urinary bladder is seen.. Bladder: No gross bladder wall abnormality. Possible calcified stone is seen in right dependent portion of bladder lumen. Pelvic Nodes: Markedly enlarged lymph nodes along right iliac chain are seen measures up to 2.8 x 3.6 cm in size series 2, image 75. Additional prominent right inguinal lymph nodes are also seen measures up to 1.6 cm in short axis diameter series 2, image 83. Smaller lymph nodes are seen in left inguinal region and along left iliac chain. Miscellaneous: No inguinal hernias are seen. Bones: No aggressive osseous abnormality. No acute vertebral body compression fracture. Degenerative disc disease throughout lumbar spine is seen. IMPRESSION: 1. Extensive retroperitoneal lymphadenopathy , prominent bilateral iliac lymph nodes extending to bilateral inguinal region concerning for systemic process such as lymphoma suggest clinical correlation. 2. No bowel obstruction or abnormal bowel wall thickening. Moderate constipation. Normal appendix. No free fluid or free air. 3. Cholelithiasis without CT evidence of acute cholecystitis. Dictated by: Yoav Vinson M.D. on 07/20/2023 at 17:22 Approved by: Yoav Vinson M.D. on 07/20/2023 at 17:30
[2023-07-20 17:17] LABS: Hematocrit 37.5 % (41-53); Hemoglobin 12.6 g/dL (13.5-17.5); Mean Corpuscular HGB Conc 33.7 % (30-36); Mean Corpuscular Hemoglobin 30.4 PG (26-34); Mean Corpuscular Volume 90.2 fL (80-100); Platelet Count 72 X10^3/uL (150-400); Red Blood Cell Count 4.15 X10^6/uL (4.5-5.9); Red Cell Distribution Width 14.6 % (11.6-14.8); White Blood Cell Count 11.4 X10^3/uL (4.5-11.0)
[2023-07-20 17:18] LABS: Add Manual Diff / Slide Review YES
[2023-07-20 17:22] LABS: Alanine Aminotransferase 32 IU/L (<50); Albumin 4.2 g/dL (3.5-5.0); Albumin Globulin Ratio 1.3 (1.0-2.8); Alkaline Phosphatase 78 U/L (38-126); Aspartate Aminotransferase 35 IU/L (17-59); BUN Creatinine Ratio 22.3 (6-22); Bilirubin Total 0.9 mg/dL (0.2-1.3); Blood Urea Nitrogen 21 mg/dL (9-20); Calcium 9.5 mg/dL (8.4-10.2); Carbon Dioxide 28 mmol/L (22-32); Chloride 102 mmol/L (98-107); Estimated Glomerular Filt Rate > 60 mL/min (>60); Globulin 3.2 g/dL (1.7-4.1); Glucose 105 mg/dL (80-110); HEMOLYSIS < 15 (0-50); Potassium 3.7 mmol/L (3.4-5.1); Sodium 137 mmol/L (137-145); Total Protein 7.4 g/dL (6.3-8.2)
[2023-07-20 17:35] LABS: Neutrophils Absolute Manual 4104 /uL (3000-5900); Total Cells Counted 100
[2023-07-20 17:36] LABS: RBC Morphology Normal Morphology
[2023-07-20 18:12] LABS: Urine Volume 10mL (spun)
[2023-07-20 18:13] LABS: Appearance Urine UA CLEAR; Bilirubin Urine UA NEGATIVE (NEGATIVE); Color Urine UA YELLOW; Glucose Urine UA NEGATIVE (Negative); Ketones Urine UA NEGATIVE (NEGATIVE); Leukocyte Esterase Urine UA NEGATIVE (NEGATIVE); Nitrite Urine UA NEGATIVE (Negative); Occult Blood Urine UA NEGATIVE (Negative); Protein Urine UA NEGATIVE (Negative); pH Urine UA 7.5 (4.5-8.0)
[2023-07-20 18:30] LABS: Bacteria Urine None Seen; Culture Indicated Urine Cult Not Indicated; RBC Urine None Seen (0-5/HPF); Squamous Epithelial Cell Urine 0-1 /HPF (0-5/HPF); WBC Urine None Seen (0-5/HPF)
[2023-07-20 18:40] VITALS: PULSE 74; RESP 18; O2SAT 98
== END 2023-07-20 18:56 | disposition home or self-care (01) ==
PROVIDERS: Emergency Provider Physician Assistant; PCP Family Medicine
DX: R60.0 Localized edema (principal); N40.1 Benign prostatic hyperplasia with lower urinary tract symptoms; D69.6 Thrombocytopenia, unspecified; R59.9 Enlarged lymph nodes, unspecified; R79.89 Other specified abnormal findings of blood chemistry
CPT/HCPCS: 36415; 51798; 74177; 80053; 81001; 85007; 85025; 93971; 99284; Q9967

== ENCOUNTER → 2023-08-16 14:15 | Outpatient (CLI) | payer MEDICARE, OTHER, SELFPAY ==
[2023-08-17 05:49] LABS: Hepatitis B Surf AB Quant 404.3 mIU/mL (Immunity>9.9)
[2023-08-19 22:42] LABS: Hepatitis B Virus DNA HBV DNA not detected IU/mL (.)
== END ==
LOC: LAB 14:18
PROVIDERS: PCP Family Medicine; Referring Provider Internal Medicine Hematology & Oncology; Visit Provider Internal Medicine Hematology & Oncology
DX: R59.1 Generalized enlarged lymph nodes (principal)
CPT/HCPCS: 36415; 86706; 87517

== ENCOUNTER → 2023-09-09 15:09 | Outpatient (CLI) | payer MEDICARE, OTHER, SELFPAY ==
[2023-09-09 19:59] LABS: Hepatitis B Surface Antigen NEGATIVE s/c (NEGATIVE)
[2023-09-11 04:17] LABS: Hepatitis B Surf AB Quant 422.8 mIU/mL (Immunity>9.9)
[2023-09-13 05:04] LABS: Hepatitis B Core Antibody Positive (Negative)
[2023-09-14 07:10] LABS: Hepatitis B Core IgM Negative (Negative)
[2023-09-14 13:02] LABS: QuantiFERON Mitogen Value >10.00 IU/mL (.); QuantiFERON Nil Value 0.05 IU/mL (.); QuantiFERON TB Gold Plus Negative (Negative); QuantiFERON TB1 Ag Value 0.07 IU/mL (.); QuantiFERON TB2 Ag Value 0.06 IU/mL (.)
== END ==
LOC: LAB 15:12
PROVIDERS: PCP Family Medicine; Referring Provider Internal Medicine; Visit Provider Internal Medicine
DX: R59.1 Generalized enlarged lymph nodes (principal)
CPT/HCPCS: 36415; 86480; 86635; 86704; 86705; 86706; 87340

== ENCOUNTER 2023-12-16 06:03 | Emergency (ER) | payer MEDICARE, OTHER, SELFPAY ==
[2023-12-16] VITALS (13 sets, daily range): BP systolic 124–148; BP diastolic 57–67; PULSE 66–79; RESP 11–22; TEMP 37.3; O2SAT 92–100; BMI 26.4
--- NOTE | 2023-12-16 06:17 | ED_ITS ---
HPI - Abdominal Pain <Neena Nelson MD - Last Filed: 12/18/23 06:53> General Chief Complaint: Abdominal Pain Stated Complaint: constipated, started chemo 12/05 weakness Time Seen by Provider: 12/16/23 06:09 History of Present Illness HPI narrative: 78-year-old male with history of recently diagnosed T-cell 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 Patient recently started chemotherapy 10 days ago at [facility] for his T-cell lymphoma. He has been undergoing injections for low cell counts regularly at [facility], he was scheduled for another injection later this afternoon. Patient and are confusing historians. They state that patient has been constipated for the last 10 days, but stated that last night patient had ?explosive? diarrhea. They has been giving him senna tea and Imodium for his symptoms. Patient states that he strains and nothing comes out. He states that this causes him to hyperventilate. He says that last night he could not get any sleep and ?I can not keep going like this?. Patient states that yesterday he ran a fever at the appointment for his injection and was started on levofloxacin, but states that they did not find a source for his fever. Related Data Home Medications Medication Instructions Recorded Confirmed multivitamin 1 cap DAILY 12/04/20 05/25/23 cholecalciferol (vitamin D3) 25 25 mcg PO DAILY 11/24/22 05/25/23 mcg (1,000 unit) capsule (Vitamin D3) omega-3 fatty acids-vitamin E 1 cap DAILY 11/24/22 05/25/23 1,000 mg capsule red yeast rice 600 mg capsule 1,200 mg PO DAILY 11/24/22 05/25/23 Previous Rx's Medication Instructions Recorded gabapentin 100 mg capsule 100 mg PO DAILY #60 caps 06/17/23 losartan 25 mg tablet 25 mg PO DAILY #90 tabs 06/23/23 tamsulosin 0.4 mg capsule 0.4 mg PO DAILY #30 caps 11/30/23 Allergies Allergy/AdvReac Type Severity Reaction Status Date / Time aspirin [ASPIRIN] Allergy Severe Childhood, Verified 05/25/23 09:29 facial swelling Patient History <Neena Nelson MD - Last Filed: 12/18/23 06:53> Medical History Measles Prostatitis (2010) Chicken pox Hyperlipidemia Hypertension (2001) UTI (urinary tract infection) (2010) Skin cancer (2009) Thrombocytopenia (2006) Surgical History Anesthesia Status post colonoscopy (08/20/06) Family History Father Parkinson's disease Mother Parkinson's disease Social History marital status: number of children: 2 household members: spouse lives independently: Yes caregiver/support person: No housing: house Smoking Status: Never smoker second hand exposure: No alcohol intake: current substance use type: does not use Smoking Status: Never smoker Substance Use Type: does not use Exam <Neena Nelson MD - Last Filed: 12/18/23 06:53> Initial Vital Signs Initial Vital Signs: Vital Signs Pulse Rate 79 12/16/23 06:12 Pulse Oximetry 100 12/16/23 06:12 Const: Awake, alert, anxious Cardiac: regular rate, regular rhythm RESP: Speaking in complete sentences without dyspnea, clear bilaterally GI: Soft, generalized tenderness to deep palpation without rebound or guarding Skin: Warm, Dry, intact, no rashes Neuro: AO x3, CN II-XII grossly intact, moves all extremities <Ina De La Rosa DO - Last Filed: 12/16/23 13:56> Initial Vital Signs Initial Vital Signs: Vital Signs Pulse Rate 79 12/16/23 06:12 Pulse Oximetry 100 12/16/23 06:12 Course <Neena Nelson MD - Last Filed: 12/18/23 06:53> Orders Ordered: Discontinued Medications Filgrastim (Filgrastim-Aafi 300 Mcg/0.5 Ml Syringe) 600 mcg SUBCUT NOW ONE Stop: 12/16/23 09:16 Last Admin: 12/16/23 09:25 Dose: 600 mcg Documented By: SPF Sodium Chloride (Normal Saline 0.9%) 1,000 mls @ 1,000 mls/hr IV BOLUS ONE Stop: 12/16/23 08:18 Last Infusion: 12/16/23 08:56 Dose: Infused Documented By: Admin: 12/16/23 07:30 Dose: 1,000 mls/hr Documented By: NORI Lidocaine HCl (Lidocaine 2% (Glydo) 6 Ml Gel) 6 ml TOP NOW ONE Stop: 12/16/23 07:49 Last Admin: 12/16/23 08:00 Dose: 6 ml Documented By: NORI Vital Signs Vital signs: Vital Signs - 8 hr 12/16/23 06:12 12/16/23 06:13 12/16/23 06:13 Temperature Pulse Rate 79 78 Respiratory Rate Blood Pressure 144/63 H Pulse Oximetry 100 100 Oxygen Delivery Method 12/16/23 06:20 12/16/23 06:30 12/16/23 06:30 Temperature 99.1 F Pulse Rate 77 77 Respiratory Rate 18 19 Blood Pressure 144/63 H 148/67 H Pulse Oximetry 100 100 Oxygen Delivery Method Room Air Room Air 12/16/23 06:52 12/16/23 06:52 12/16/23 07:00 Temperature Pulse Rate 77 76 Respiratory Rate 21 21 Blood Pressure 146/65 H Pulse Oximetry 92 100 Oxygen Delivery Method 12/16/23 07:00 12/16/23 07:30 12/16/23 07:32 Temperature Pulse Rate 78 76 Respiratory Rate 16 20 Blood Pressure 124/57 L Pulse Oximetry 100 100 Oxygen Delivery Method Room Air 12/16/23 07:32 12/16/23 08:00 12/16/23 08:00 Temperature Pulse Rate 76 Respiratory Rate 22 Blood Pressure 140/63 129/63 Pulse Oximetry 100 Oxygen Delivery Method 12/16/23 08:30 12/16/23 08:30 12/16/23 09:00 Temperature Pulse Rate 70 Respiratory Rate 20 Blood Pressure 128/59 L 136/61 Pulse Oximetry 100 Oxygen Delivery Method 12/16/23 09:00 12/16/23 09:30 12/16/23 09:30 Temperature Pulse Rate 66 77 Respiratory Rate 13 11 L Blood Pressure 138/62 Pulse Oximetry 100 97 Oxygen Delivery Method Room Air 12/16/23 10:00 12/16/23 10:00 Temperature Pulse Rate 77 Respiratory Rate 20 Blood Pressure 134/64 Pulse Oximetry 98 Oxygen Delivery Method <Ina De La Rosa DO - Last Filed: 12/16/23 13:56> Orders Ordered: Discontinued Medications Filgrastim (Filgrastim-Aafi 300 Mcg/0.5 Ml Syringe) 600 mcg SUBCUT NOW ONE Stop: 12/16/23 09:16 Last Admin: 12/16/23 09:25 Dose: 600 mcg Documented By: NORI Sodium Chloride (Normal Saline 0.9%) 1,000 mls @ 1,000 mls/hr IV BOLUS ONE Stop: 12/16/23 08:18 Last Infusion: 12/16/23 08:56 Dose: Infused Documented By: Admin: 12/16/23 07:30 Dose: 1,000 mls/hr Documented By: NORI Lidocaine HCl (Lidocaine 2% (Glydo) 6 Ml Gel) 6 ml TOP NOW ONE Stop: 12/16/23 07:49 Last Admin: 12/16/23 08:00 Dose: 6 ml Documented By: NORI Vital Signs Vital signs: Vital Signs - 8 hr 12/16/23 06:12 12/16/23 06:13 12/16/23 06:13 Temperature Pulse Rate 79 78 Respiratory Rate Blood Pressure 144/63 H Pulse Oximetry 100 100 Oxygen Delivery Method 12/16/23 06:20 12/16/23 06:30 12/16/23 06:30 Temperature 99.1 F Pulse Rate 77 77 Respiratory Rate 18 19 Blood Pressure 144/63 H 148/67 H Pulse Oximetry 100 100 Oxygen Delivery Method Room Air Room Air 12/16/23 06:52 12/16/23 06:52 12/16/23 07:00 Temperature Pulse Rate 77 76 Respiratory Rate 21 21 Blood Pressure 146/65 H Pulse Oximetry 92 100 Oxygen Delivery Method 12/16/23 07:00 12/16/23 07:30 12/16/23 07:32 Temperature Pulse Rate 78 76 Respiratory Rate 16 20 Blood Pressure 124/57 L Pulse Oximetry 100 100 Oxygen Delivery Method Room Air 12/16/23 07:32 12/16/23 08:00 12/16/23 08:00 Temperature Pulse Rate 76 Respiratory Rate 22 Blood Pressure 140/63 129/63 Pulse Oximetry 100 Oxygen Delivery Method 12/16/23 08:30 12/16/23 08:30 12/16/23 09:00 Temperature Pulse Rate 70 Respiratory Rate 20 Blood Pressure 128/59 L 136/61 Pulse Oximetry 100 Oxygen Delivery Method 12/16/23 09:00 12/16/23 09:30 12/16/23 09:30 Temperature Pulse Rate 66 77 Respiratory Rate 13 11 L Blood Pressure 138/62 Pulse Oximetry 100 97 Oxygen Delivery Method Room Air 12/16/23 10:00 12/16/23 10:00 Temperature Pulse Rate 77 Respiratory Rate 20 Blood Pressure 134/64 Pulse Oximetry 98 Oxygen Delivery Method MDM - Abdominal Pain <Neena Nelson MD - Last Filed: 12/18/23 06:53> Differential Diagnosis Differential diagnosis: Likely abdominal pain, constipation and diverticulitis Lab Data 12/16/23 06:38 12/16/23 06:38 Labs: Lab Results 12/16/23 12/16/23 12/16/23 Range/Units 06:38 06:53 08:11 WBC 2.2 L (4.5-11.0) X10^3/uL RBC 3.58 L (4.5-5.9) X10^6/uL Hgb 10.8 L (13.5-17.5) g/dL Hct 31.4 L (41-53) % MCV 87.8 (80-100) fL MCH 30.3 (26-34) PG MCHC 34.5 (30-36) % RDW 15.5 H (11.6-14.8) % Plt Count 18 L* (150-400) X10^3/uL Neut % (Auto) 2.0 L (50-75) % Lymph % (Auto) 44.9 H (25-40) % [place] % (Auto) 52.0 H (3-14) % Eos % (Auto) 0.9 L (2-4) % Baso % (Auto) 0.2 (0-2) % Neut # (Auto) 0 L (4272-5262) /uL Lymph # (Auto) 1000 L (4100-1572) /uL [place] # (Auto) 1100 H (0-900) /uL Eos # (Auto) 0 (0-450) /uL Baso # (Auto) 0 (0-100) /uL Platelet Estimate Decreased on smear RBC Morphology See below Anisocytosis 1+ H Sodium 133 L (137-145) mmol/L Potassium 3.6 (3.4-5.1) mmol/L Chloride 103 (98-107) mmol/L Carbon Dioxide 21 L (22-32) mmol/L BUN 17 (9-20) mg/dL Creatinine 1.09 (0.66-1.25) mg/dL Estimated GFR > 60 (>60) mL/min BUN/Creatinine Ratio 15.6 (6-22) Glucose 120 H (80-110) mg/dL Lactate 2.4 H (0.7-2.1) mmol/L Calcium 8.9 (8.4-10.2) mg/dL Total Bilirubin 1.4 H (0.2-1.3) mg/dL AST 28 (17-59) IU/L ALT 55 H (<50) IU/L Alkaline Phosphatase 84 (38-126) U/L Total Protein 6.4 (6.3-8.2) g/dL Albumin 3.8 (3.5-5.0) g/dL Globulin 2.6 (1.7-4.1) g/dL Albumin/Globulin Ratio 1.5 (1.0-2.8) Lipase 55 (23-300) U/L Urine Color Yellow Urine Appearance Clear Urine pH 7.5 (4.5-8.0) Ur Specific [place] 1.010 (1.000-1.035) Urine Protein Trace H (Negative) Urine Glucose (UA) Negative (Negative) g/dL Urine Ketones Negative (NEGATIVE) Urine Occult Blood 3+ H (Negative) Urine Nitrate Negative (Negative) Urine Bilirubin Negative (NEGATIVE) Urine Urobilinogen 0.2 (0.2) E.U./dL Ur Leukocyte Esterase Negative (NEGATIVE) Urine RBC None seen 10-30/hpf H D (0-5/HPF) Urine WBC 0-1/hpf 0-1/hpf (0-5/HPF) Ur Squamous Epith Cells None seen None seen (0-5/HPF) Urine Bacteria Occasional (0-1) None seen (None) Ur Culture Indicated? Cult not indicated Cult not indicated Vol Urine Centrifuged 10ml (spun) 10ml (spun) 12/16/23 Range/Units 08:44 WBC (4.5-11.0) X10^3/uL RBC (4.5-5.9) X10^6/uL Hgb (13.5-17.5) g/dL Hct (41-53) % MCV (80-100) fL MCH (26-34) PG MCHC (30-36) % RDW (11.6-14.8) % Plt Count (150-400) X10^3/uL Neut % (Auto) (50-75) % Lymph % (Auto) (25-40) % [place] % (Auto) (3-14) % Eos % (Auto) (2-4) % Baso % (Auto) (0-2) % Neut # (Auto) (0941-5313) /uL Lymph # (Auto) (7356-1701) /uL [place] # (Auto) (0-900) /uL Eos # (Auto) (0-450) /uL Baso # (Auto) (0-100) /uL Platelet Estimate RBC Morphology Anisocytosis Sodium (137-145) mmol/L Potassium (3.4-5.1) mmol/L Chloride (98-107) mmol/L Carbon Dioxide (22-32) mmol/L BUN (9-20) mg/dL Creatinine (0.66-1.25) mg/dL Estimated GFR (>60) mL/min BUN/Creatinine Ratio (6-22) Glucose (80-110) mg/dL Lactate 1.5 (0.7-2.1) mmol/L Calcium (8.4-10.2) mg/dL Total Bilirubin (0.2-1.3) mg/dL AST (17-59) IU/L ALT (<50) IU/L Alkaline Phosphatase (38-126) U/L Total Protein (6.3-8.2) g/dL Albumin (3.5-5.0) g/dL Globulin (1.7-4.1) g/dL Albumin/Globulin Ratio (1.0-2.8) Lipase (23-300) U/L Urine Color Urine Appearance Urine pH (4.5-8.0) Ur Specific [place] (1.000-1.035) Urine Protein (Negative) Urine Glucose (UA) (Negative) g/dL Urine Ketones (NEGATIVE) Urine Occult Blood (Negative) Urine Nitrate (Negative) Urine Bilirubin (NEGATIVE) Urine Urobilinogen (0.2) E.U./dL Ur Leukocyte Esterase (NEGATIVE) Urine RBC (0-5/HPF) Urine WBC (0-5/HPF) Ur Squamous Epith Cells (0-5/HPF) Urine Bacteria (None) Ur Culture Indicated? Vol Urine Centrifuged Point of care testing: Urine Dip Bedside Urine Glucose Negative Bedside Urine Bilirubin - Negative Bedside Urine Ketone - Negative Urine Specific [place] 1.010 Bedside Urine Occult Blood - Negative Bedside Urine pH 6.0 Bedside Urine Protein - Negative Bedside Urine Urobilinogen - Negative Bedside Urine Nitrite - Negative Bedside Urine Leukocytes - Negative Esterase <Ina De La Rosa, DO - Last Filed: 12/16/23 13:56> Lab Data Labs: Lab Results 12/16/23 12/16/23 12/16/23 Range/Units 06:38 06:53 08:11 WBC 2.2 L (4.5-11.0) X10^3/uL RBC 3.58 L (4.5-5.9) X10^6/uL Hgb 10.8 L (13.5-17.5) g/dL Hct 31.4 L (41-53) % MCV 87.8 (80-100) fL MCH 30.3 (26-34) PG MCHC 34.5 (30-36) % RDW 15.5 H (11.6-14.8) % Plt Count 18 L* (150-400) X10^3/uL Neut % (Auto) 2.0 L (50-75) % Lymph % (Auto) 44.9 H (25-40) % [place] % (Auto) 52.0 H (3-14) % Eos % (Auto) 0.9 L (2-4) % Baso % (Auto) 0.2 (0-2) % Neut # (Auto) 0 L (9521-5925) /uL Lymph # (Auto) 1000 L (0188-6809) /uL [place] # (Auto) 1100 H (0-900) /uL Eos # (Auto) 0 (0-450) /uL Baso # (Auto) 0 (0-100) /uL Platelet Estimate Decreased on smear RBC Morphology See below Anisocytosis 1+ H Sodium 133 L (137-145) mmol/L Potassium 3.6 (3.4-5.1) mmol/L Chloride 103 (98-107) mmol/L Carbon Dioxide 21 L (22-32) mmol/L BUN 17 (9-20) mg/dL Creatinine 1.09 (0.66-1.25) mg/dL Estimated GFR > 60 (>60) mL/min BUN/Creatinine Ratio 15.6 (6-22) Glucose 120 H (80-110) mg/dL Lactate 2.4 H (0.7-2.1) mmol/L Calcium 8.9 (8.4-10.2) mg/dL Total Bilirubin 1.4 H (0.2-1.3) mg/dL AST 28 (17-59) IU/L ALT 55 H (<50) IU/L Alkaline Phosphatase 84 (38-126) U/L Total Protein 6.4 (6.3-8.2) g/dL Albumin 3.8 (3.5-5.0) g/dL Globulin 2.6 (1.7-4.1) g/dL Albumin/Globulin Ratio 1.5 (1.0-2.8) Lipase 55 (23-300) U/L Urine Color Yellow Urine Appearance Clear Urine pH 7.5 (4.5-8.0) Ur Specific [place] 1.010 (1.000-1.035) Urine Protein Trace H (Negative) Urine Glucose (UA) Negative (Negative) g/dL Urine Ketones Negative (NEGATIVE) Urine Occult Blood 3+ H (Negative) Urine Nitrate Negative (Negative) Urine Bilirubin Negative (NEGATIVE) Urine Urobilinogen 0.2 (0.2) E.U./dL Ur Leukocyte Esterase Negative (NEGATIVE) Urine RBC None seen 10-30/hpf H D (0-5/HPF) Urine WBC 0-1/hpf 0-1/hpf (0-5/HPF) Ur Squamous Epith Cells None seen None seen (0-5/HPF) Urine Bacteria Occasional (0-1) None seen (None) Ur Culture Indicated? Cult not indicated Cult not indicated Vol Urine Centrifuged 10ml (spun) 10ml (spun) 12/16/23 Range/Units 08:44 WBC (4.5-11.0) X10^3/uL RBC (4.5-5.9) X10^6/uL Hgb (13.5-17.5) g/dL Hct (41-53) % MCV (80-100) fL MCH (26-34) PG MCHC (30-36) % RDW (11.6-14.8) % Plt Count (150-400) X10^3/uL Neut % (Auto) (50-75) % Lymph % (Auto) (25-40) % [place] % (Auto) (3-14) % Eos % (Auto) (2-4) % Baso % (Auto) (0-2) % Neut # (Auto) (8101-5606) /uL Lymph # (Auto) (2690-0415) /uL [place] # (Auto) (0-900) /uL Eos # (Auto) (0-450) /uL Baso # (Auto) (0-100) /uL Platelet Estimate RBC Morphology Anisocytosis Sodium (137-145) mmol/L Potassium (3.4-5.1) mmol/L Chloride (98-107) mmol/L Carbon Dioxide (22-32) mmol/L BUN (9-20) mg/dL Creatinine (0.66-1.25) mg/dL Estimated GFR (>60) mL/min BUN/Creatinine Ratio (6-22) Glucose (80-110) mg/dL Lactate 1.5 (0.7-2.1) mmol/L Calcium (8.4-10.2) mg/dL Total Bilirubin (0.2-1.3) mg/dL AST (17-59) IU/L ALT (<50) IU/L Alkaline Phosphatase (38-126) U/L Total Protein (6.3-8.2) g/dL Albumin (3.5-5.0) g/dL Globulin (1.7-4.1) g/dL Albumin/Globulin Ratio (1.0-2.8) Lipase (23-300) U/L Urine Color Urine Appearance Urine pH (4.5-8.0) Ur Specific [place] (1.000-1.035) Urine Protein (Negative) Urine Glucose (UA) (Negative) g/dL Urine Ketones (NEGATIVE) Urine Occult Blood (Negative) Urine Nitrate (Negative) Urine Bilirubin (NEGATIVE) Urine Urobilinogen (0.2) E.U./dL Ur Leukocyte Esterase (NEGATIVE) Urine RBC (0-5/HPF) Urine WBC (0-5/HPF) Ur Squamous Epith Cells (0-5/HPF) Urine Bacteria (None) Ur Culture Indicated? Vol Urine Centrifuged Point of care testing: Urine Dip Bedside Urine Glucose Negative Bedside Urine Bilirubin - Negative Bedside Urine Ketone - Negative Urine Specific [place] 1.010 Bedside Urine Occult Blood - Negative Bedside Urine pH 6.0 Bedside Urine Protein - Negative Bedside Urine Urobilinogen - Negative Bedside Urine Nitrite - Negative Bedside Urine Leukocytes - Negative Esterase MDM Narrative Medical decision making narrative: Dr. De La Rosa-patient signed out to me by Dr. Nelson seen evaluated patient myself. Records from [facility] have been reviewed. Patient received a Zarxio injection on December 14 at 2:00 p.m.. He reports having diarrhea yesterday 12 episodes of watery diarrhea. But no stool sample was collected. He states that there was a temperature of 101?. Patient was started on Levaquin 500 mg daily for 7 days. It was recommended he go to the ED for persistent nausea vomiting diarrhea. Patient has angioimmunoblastic T-cell lymphoma was constipated but started watery stools on 12/13/2023 at which time he started immodium. Blood work today reviewed CBC 2.20 neutrophils platelets 18, sodium 133 potassium 3.6 chloride 1 3 bicarb 21 BUN 17 creatinine 1.09 glucose 120 lactate 2.4, bilirubin 1.4, AST 28 ALT 55 alk-phos 84, lipase 55 Blood cultures pending X-ray KUB no obstruction CT shows distended bladder, along with diffuse bowel wall thickening possible proctocolitis, and decreased retroperitoneal pelvic inguinal lymph nodes mild splenomegaly 08:55 Dr. Knapp, oncology updated on patient's test results including laboratory results it sounds as though he has been neutropenic this week hence the Zarxio shots. He is aware that our hospital only has Granix 300 mcg states that patient can have 600 mcg today as opposed to the Zarixo. He is aware of urinary retention and Sanchez catheter along with possible proctocolitis. This also may be inflammatory bowel disease and due to medication of constipation and diarrhea. Patient is not tolerating chemotherapy chemotherapy is going to have to be delayed and he has not responding well. Patient is to continue coming to the office this week for Zarxio shots. Patient has elevated lactate of 2.4 in his neutropenic but has been neutropenic. There are reports previously of fever he is already empirically on Levaquin. He is afebrile here normotensive and not tachycardic. At this time he has close follow-up with Oncology. No need for further IV antibiotics. Currently being treated. Patient feels significantly better after Sanchez catheter placed. He got a over 1 L of urine out. Urinalysis does not show any evidence of infection. Discharge Plan Departure Patient Disposition: Home Clinical Impression: Acute urinary retention, Thrombocytopenia, Neutropenia, Proctocolitis Instructions: How to Care for Your Sanchez Catheter -- Male, DI for Urinary Retention in Men Activity Restrictions/Additional Instructions: *You have been diagnosed with urinary retention, neutropenia diarrhea *What to do: At this time keep Sanchez catheter in place. You will need to get set up with Urology for follow-up and changing catheter. At sometime this may or may not be able to come out. Continue to see Dr. Matos for injections You are going to have to adjust medication for diarrhea and constipation. At this time I would hold off taking laxatives such as senna and MiraLax. You may try a light stool softener Dulcolax or Colace to help prevent constipation but it should cause excessive diarrhea *Continue to take medications as directed Continue Levaquin as previously prescribed Claritin 10 mg once daily if you should have increased bone pain *Follow up with your primary care provider in 2-3 days or call [phone] Follow-up with Dr. Knapp tomorrow *Return to ER if you should have persistent fever greater than 101 dizziness lightheadedness, persistent vomiting or diarrhea [or] any new, worsening or concerning symptoms Prescriptions: No Action gabapentin 100 mg capsule 100 mg PO DAILY Qty: 60 1RF losartan 25 mg tablet 25 mg PO DAILY Qty: 90 3RF tamsulosin 0.4 mg capsule 0.4 mg PO DAILY Qty: 30 0RF multivitamin Capsule 1 cap DAILY cholecalciferol (vitamin D3) [Vitamin D3] 25 mcg (1,000 unit) Capsule 25 mcg PO DAILY Fish Oil 1,000 mg Capsule 1 cap DAILY red yeast rice 600 mg Capsule 1,200 mg PO DAILY Rx Instructions: give with meal/snack Referrals: Kiko Knapp MD [Non-Staff] - Samir Love MD [Physician] - Krystal Mei MD [Primary Care Provider] - John Menezes MD [Physician] - Stand Alone Forms: Patient Portal/API
--- NOTE | 2023-12-16 06:17 | DI.RAD.S_ITS ---
PROCEDURE: XR KUB INDICATIONS: constipation x 10 days TECHNIQUE: One view of the abdomen acquired. COMPARISON: [facility], CT, CT ABDOMEN PELVIS W CON, 12/16/2023, 7:07. FINDINGS: Surgical changes and devices: None. Bowel: Nonobstructive bowel gas pattern. Mild stool burden in the right colon. Soft tissues: No suspicious abdominal calcifications. Visualized solid organ contours appear normal in size. Bones: No suspicious bony lesions. Multilevel degenerative changes are seen in the spine. IMPRESSION: Nonobstructive bowel gas pattern. Mild stool burden. Approved by: Sam Saucedo M.D. on 12/16/2023 at 8:25
--- NOTE | 2023-12-16 06:39 | DI.CT.S_ITS ---
PROCEDURE: CT ABDOMEN PELVIS W CON INDICATIONS: GEN ABDOMINAL PAIN, BLOATED, RECENT DX LYMPHOMA TECHNIQUE: After the administration of intravenous contrast, axial sections acquired from the lung bases to the pubic symphysis. Coronal and sagittal reformats were performed. For radiation dose reduction, the following was used: automated exposure control, adjustment of mA and/or kV according to patient size. COMPARISON: [facility], CT, CT ABDOMEN PELVIS W CON, 07/20/2023, 17:07. FINDINGS: Image quality: Diagnostic. Lower Chest: No significant findings. ABDOMEN: Liver: No solid mass. Gallbladder: A radiopaque gallstone is seen in the fundus. Biliary ducts: No biliary dilation. Pancreas: No ductal dilation. Spleen: Spleen is mildly enlarged measuring up to 13 cm in craniocaudal dimension. Adrenal Glands: No adrenal nodules. Kidneys and Ureters: Mild bilateral hydronephrosis. No obstructing calculus is seen. No solid mass. No complex renal cystic lesion which requires follow up. Stomach and Bowel: Long segment bowel wall thickening is seen extending from the transverse colon through the rectum, which is suspicious for a nonspecific colitis. Small amount of stool is seen in the right colon. Stomach is decompressed. Peritoneum: No abnormal intraperitoneal fluid. No free air. Ventral Wall: No significant ventral hernia. Abdominal Nodes: Mildly prominent retroperitoneal lymph nodes have decreased in size when compared to the CT from 07/20/2023. Vessels: Aorta and inferior vena cava are normal in size. PELVIS: Pelvic Organs: Prostate is enlarged. Bladder: Markedly distended urinary bladder extending to the level of the umbilicus. Small calcifications are seen in the dependent portion of the bladder that may resent brother calculi or mural calcifications. Pelvic Nodes: Complex right pelvic and inguinal lymph nodes have decreased in size. Miscellaneous: No inguinal hernias are seen. Bones: No aggressive osseous abnormality. IMPRESSION: 1. Diffuse bowel wall thickening throughout the majority of the colon and rectum is suspicious for a nonspecific proctocolitis. 2. Markedly distended urinary bladder extending to the level of the umbilicus with moderate bilateral hydroureteronephrosis. No obstructing calculus is seen and findings are likely related to bladder outlet obstruction. Calcifications are seen in the posterior bladder that may be related to dependent bladder calculi versus mural calcifications. No definite wall thickening. 3. Prostatomegaly. 4. Decreased size of previously seen retroperitoneal, pelvic, and inguinal lymph nodes, likely related to response to therapy. Mild splenomegaly. 5. Cholelithiasis. Approved by: Sam Saucedo M.D. on 12/16/2023 at 8:38
[2023-12-16 06:55] LABS: Alanine Aminotransferase 55 IU/L (<50); Albumin 3.8 g/dL (3.5-5.0); Albumin Globulin Ratio 1.5 (1.0-2.8); Alkaline Phosphatase 84 U/L (38-126); Aspartate Aminotransferase 28 IU/L (17-59); BUN Creatinine Ratio 15.6 (6-22); Bilirubin Total 1.4 mg/dL (0.2-1.3); Blood Urea Nitrogen 17 mg/dL (9-20); Calcium 8.9 mg/dL (8.4-10.2); Carbon Dioxide 21 mmol/L (22-32); Chloride 103 mmol/L (98-107); Estimated Glomerular Filt Rate > 60 mL/min (>60); Globulin 2.6 g/dL (1.7-4.1); Glucose 120 mg/dL (80-110); HEMOLYSIS < 15 (0-50); Potassium 3.6 mmol/L (3.4-5.1); Sodium 133 mmol/L (137-145); Total Protein 6.4 g/dL (6.3-8.2)
[2023-12-16 06:59] LABS: Add Manual Diff / Slide Review NO; Basophils Absolute Auto 0 /uL (0-100); Basophils Percent Auto 0.2 % (0-2); Eosinophils Absolute Auto 0 /uL (0-450); Eosinophils Percent Auto 0.9 % (2-4); Hematocrit 31.4 % (41-53); Hemoglobin 10.8 g/dL (13.5-17.5); Lymphocytes Absolute Auto 1000 /uL (1100-4500); Lymphocytes Percent Auto 44.9 % (25-40); Mean Corpuscular HGB Conc 34.5 % (30-36); Mean Corpuscular Hemoglobin 30.3 PG (26-34); Mean Corpuscular Volume 87.8 fL (80-100); Monocytes Absolute Auto 1100 /uL (0-900); Neutrophils Absolute Auto 0 /uL (1500-7000); Red Blood Cell Count 3.58 X10^6/uL (4.5-5.9); Red Cell Distribution Width 15.5 % (11.6-14.8); White Blood Cell Count 2.2 X10^3/uL (4.5-11.0)
[2023-12-16 07:01] LABS: Platelet Count 18 X10^3/uL (150-400)
--- NOTE | 2023-12-16 07:23 | PC.NURSE ---
Pt to CT and back to room. Up to BR with SBA. Reported off to AMELIA Acuna.
[2023-12-16 07:30] LABS: Anisocytosis 1+; Platelet Estimate Decreased on smear
[2023-12-16] MEDS: SODIUM CHLORIDE 0.9% 1,000 ML 1000 ML IV (07:30)
[2023-12-16 07:33] LABS: Lactate (Lactic Acid) 2.4 mmol/L (0.7-2.1); Lipase 55 U/L (23-300)
[2023-12-16 07:34] LABS: Bacteria Urine Occasional (0-1); Culture Indicated Urine Cult Not Indicated; RBC Urine None Seen (0-5/HPF); Squamous Epithelial Cell Urine None Seen (0-5/HPF); Urine Volume 10mL (spun); WBC Urine 0-1/HPF (0-5/HPF)
[2023-12-16] MEDS: LIDOCAINE 2% (GLYDO) 6 ML GEL TOP (08:00)
[2023-12-16 08:22] LABS: Appearance Urine UA CLEAR; Bilirubin Urine UA NEGATIVE (NEGATIVE); Color Urine UA YELLOW; Glucose Urine UA NEGATIVE (Negative); Ketones Urine UA NEGATIVE (NEGATIVE); Leukocyte Esterase Urine UA NEGATIVE (NEGATIVE); Nitrite Urine UA NEGATIVE (Negative); Occult Blood Urine UA 3+ (Negative); Protein Urine UA TRACE (Negative); Urobilinogen Urine UA 0.2 E.U./dL (0.2); pH Urine UA 7.5 (4.5-8.0)
[2023-12-16 08:34] LABS: Bacteria Urine None Seen; RBC Urine 10-30/HPF (0-5/HPF); Squamous Epithelial Cell Urine None Seen (0-5/HPF); Urine Volume 10mL (spun); WBC Urine 0-1/HPF (0-5/HPF)
[2023-12-16 08:35] LABS: Culture Indicated Urine Cult Not Indicated
[2023-12-16 09:00] LABS: Reflexed Lactate in 2 Hours Y
[2023-12-16] MEDS: FILGRASTIM-AAFI 300 MCG/0.5 ML SYRINGE 600 MCG SUBCUT (09:25)
[2023-12-16 09:41] LABS: Lactate 2HR (Lactic Acid Rflx) 1.5 mmol/L (0.7-2.1)
--- NOTE | 2023-12-16 10:15 | PC.NURSE ---
Extensive education provided to patient and spouse regarding home catheter use. All questions answered, written instructions provided.
== END 2023-12-16 10:30 | disposition home or self-care (01) ==
PROVIDERS: Emergency Medicine; Emergency Provider Emergency Medicine; PCP Family Medicine
DX: R33.8 Other retention of urine (principal); K52.9 Noninfective gastroenteritis and colitis, unspecified; D70.9 Neutropenia, unspecified; D69.6 Thrombocytopenia, unspecified; C91.50 Adult T-cell lymphoma/leukemia (HTLV-1-associated) not having achieved remission
CPT/HCPCS: 36415; 74018; 74177; 80053; 81001; 81003; 81015; 83605; 83690; 85025; 87040; 96360; 96372; 99284; Q5110; Q9967

== ENCOUNTER → 2024-02-04 10:35 | Outpatient (CLI) | payer MEDICARE, OTHER, SELFPAY ==
--- NOTE | 2024-02-04 10:36 | DI.US.S_ITS ---
PROCEDURE: US RENAL COMPLETE INDICATIONS: HYDRONEPHROSIS TECHNIQUE: Real-time scanning was performed of the kidneys and bladder, with image documentation. COMPARISON: [facility], CT, CT ABDOMEN PELVIS W CON, 12/16/2023, 7:07. FINDINGS: Kidneys: Kidneys are normal in size. Right kidney measures 11 cm long; left kidney measures 12.2 cm long. Right renal cortical thickness is 1.5 cm; left renal cortical thickness is 2.4 cm. Renal cortical echotexture is normal. No hydronephrosis or nephrolithiasis. No suspicious solid mass lesions. Bladder: A Sanchez catheter is seen, which decompresses the bladder. Miscellaneous: No free pelvic fluid. IMPRESSION: No hydronephrosis is now seen on either side. A Sanchez catheter is in place. Dictated by: Be Canas M.D. on 02/04/2024 at 16:49 Approved by: Be Canas M.D. on 02/04/2024 at 16:51
== END ==
PROVIDERS: PCP Family Medicine; Referring Provider Physician Assistant; Visit Provider Physician Assistant
DX: N13.30 Unspecified hydronephrosis (principal)
CPT/HCPCS: 76770

== ENCOUNTER → 2024-06-16 16:08 | Outpatient (CLI) | payer MEDICARE, OTHER, SELFPAY ==
--- NOTE | 2024-06-16 16:09 | DI.US.S_ITS ---
PROCEDURE: US RENAL COMPLETE INDICATIONS: HYDRONEPHROSIS TECHNIQUE: Real-time scanning was performed of the kidneys and bladder, with image documentation. COMPARISON: [facility], , RENAL COMPLETE, 02/04/2024, 10:47. FINDINGS: Kidneys: Right kidney measures 11 cm. Left kidney measures 13 cm. No hydronephrosis. No calculi identified by ultrasound. Left renal cyst measures 1.1 x 0.8 cm, with thin septation. No solid renal mass. Bladder: Urinary bladder is collapsed with a Sanchez catheter. Miscellaneous: No free pelvic fluid. IMPRESSION: No hydronephrosis bilaterally. Sanchez catheter in place. Dictated by: Kyler Hope M.D. on 06/17/2024 at 20:30 Approved by: Kyler Hope M.D. on 06/17/2024 at 20:31
== END ==
PROVIDERS: PCP Family Medicine; Referring Provider Physician Assistant; Visit Provider Physician Assistant
DX: N13.30 Unspecified hydronephrosis (principal); N28.1 Cyst of kidney, acquired
CPT/HCPCS: 76770

== ENCOUNTER → 2025-01-29 10:18 | Outpatient (CLI) | payer MEDICARE, OTHER, SELFPAY ==
--- NOTE | 2025-01-29 10:19 | DI.ECHO.S_ITS ---
[place] +---------+ Hospital : : [address] : : [place] : : [id number] : : Phone: [phone] Echocardiogram Report + + :Name: GRACY ROJO Study Date: 01/29/2025 Height: 74 in : :Hospital ReadingLocation: Weight: 179 lb : : Gender: Male BSA: 2.1 m2 : :: 1945 Age: 80 yrs BP: 132/75 mmHg: :Reason For Study: Shortness of breath : :Ordering Physician: Aria, : :MD Kiko Performed By: Stewart Barton : :Referring: Bryant Spivey MD : + + Interpretation Summary Normal left ventricle size with ejection fraction 50-55%. Left ventricular global longitudinal strain average is -14.3%. Borderline hypokinesis of apical anterior wall and septum. Mild mitral regurgitation. Procedure: A two-dimensional transthoracic echocardiogram with color flow and Doppler was performed. The study quality was technically adequate. There is no prior echocardiogram noted for this patient. The patient was in normal sinus rhythm during the exam. Left Ventricle: The left ventricle is normal in size and wall thickness. The ejection fraction is estimated to be 50-55%. Left ventricular global longitudinal strain average is -14.3%. There is apical anterior wall mild hypokinesis. There is apical septal wall mild hypokinesis. There are no other obvious focal wall motion abnormalities. Indeterminate diastolic function. Right Ventricle: The right ventricle is normal in size and function. Atria: The left atrial size is normal. Right atrial size is normal. There is no Doppler evidence for an interatrial shunt. Mitral Valve: The mitral valve leaflets appear to open well. There is no mitral valve stenosis. There is mild mitral regurgitation. Aortic Valve: The aortic valve is trileaflet. The aortic valve opens well. There is no aortic valve stenosis. No aortic regurgitation is present. Tricuspid Valve: The tricuspid valve leaflets are thin and pliable. There is trace tricuspid regurgitation. Pulmonary artery pressures cannot be estimated because of the lack of a measurable TR jet velocity but the IVC suggests a CVP of around 3 mmHg. Pulmonic Valve: The pulmonic valve is not well seen, but is grossly normal. There is mild pulmonic regurgitation. Great Vessels: The aortic root is normal size. The ascending aorta is normal in size. The aortic arch could not be visualized. The IVC is of normal diameter and collapses greater than 50% with a sniff. This suggests a low right atrial pressure of 3 mm Hg. Pericardium/ Pleura There is no pericardial effusion. MMode/2D Measurements & Calculations LVIDd: 4.8 cm LVOT diam: 2.1 cm LVIDs: 3.7 cm Ao root diam: 3.2 cm FS: 23.7 % asc Aorta Diam: 3.1 cm EPSS: 1.0 cm IVSd: 0.95 cm LVPWd: 1.0 cm LV sorenson. diameter/BSA (cm/m^2): 2.3 LV sys. diameter/BSA (cm/m^2): 1.8 LA A2 area: 16.8 cm2 RA long axis: 5.6 cm LA A4 area: 17.6 cm2 RA area: 14.0 cm2 LA length (vol): 5.0 cm RA vol: 29.4 ml LA vol: 49.9 ml RA : 14.2 ml/m2 LA vol index: 24.1 ml/m2 IVC diam: 1.7 cm RVD1 (basal): 3.3 cm RVD2 (mid): 2.6 cm TAPSE: 2.0 cm Doppler Measurements & Calculations Ao V2 max: 122.5 cm/sec LVOT Max Adonis: 84.3 cm/sec Ao V2 mean: 83.1 cm/sec LV V1 max P.8 mmHg Ao max P.0 mmHg LV V1 VTI: 16.8 cm Ao mean P.2 mmHg TATYANA(I,D): 2.2 cm2 Ao V2 VTI: 26.1 cm TATYANA(V,D): 2.3 cm2 sev ratio: 0.64 TATYANA indexed to BSA (cm^2/m^2): 1.0 MV E max adonis: 61.1 cm/sec PA V2 max: 117.0 cm/sec MV A max adonis: 78.4 cm/sec PA V2 mean: 75.4 cm/sec MV E/A: 0.78 PA mean P.7 mmHg MV dec time: 0.23 sec PA pr(Accel): 39.2 mmHg SV(LVOT): 56.2 ml Electronically signed by: Kumar Mayes on Reading Physician:01/29/2025 04:13 PM
== END ==
LOC: ECHO 10:19
PROVIDERS: PCP Family Medicine; Referring Provider Nurse Practitioner; Visit Provider Nurse Practitioner
DX: I34.0 Nonrheumatic mitral (valve) insufficiency (principal); I37.1 Nonrheumatic pulmonary valve insufficiency; C86.5 Angioimmunoblastic T-cell lymphoma; R06.02 Shortness of breath
CPT/HCPCS: 93306